=== PATIENT | female | born 1995 | race African-American/Black ===

== ENCOUNTER 2017-04-09 17:40 | Emergency (ER) | payer MEDICAID ==
[~2017-04-09] VITALS: Ht 160 cm; Wt 61.0 kg
[2017-04-09] MEDS ORDERED: BACITRACIN ZINC OINT UDPKT TOP ONE (18:45)
[2017-04-09] MEDS ORDERED: IBUPROFEN 600MG TABLET PO ONE (18:45)
[2017-04-09] MEDS ORDERED: LIDOCAINE HCL 1% 20ML VIAL (Pyxis) INJ MC ONE (18:45)
[2017-04-09 19:15] VITALS: BP 117/69
== END 2017-04-09 20:09 | disposition home or self-care (01) ==
LOC: ER 17:55
DX: L02.31 Cutaneous abscess of buttock (principal)
CPT/HCPCS: 10060; 81025; 99283; J3490; Z7610